=== PATIENT | male | born 1960 | race Caucasian/White ===

== ENCOUNTER 2017-01-27 21:34 | Inpatient (IN) | payer OTHER ==
[~2017-01-27] VITALS: Ht 193 cm; Wt 147.0 kg
[~2017-01-27 21:34] MED LIST: ALL DAY ALLERGY10 M3 PO; ARTIFICIAL TEAR15 ML OU; BENADRYL 25MG C25 MG PO; CARDIZEM120 MG PO; COLACE 100MG C100 MG PO; DISALCID750 MG PO; FENOFIBRATE160 MG PO; FISH OIL 1,0001 EACH PO; GLUCOPHAGE850 MG PO; LISINOPRIL5 MG PO; LOPRESSOR50 MG PO; LORTAB 5-325 M1 EACH PO; LORTAB 7.5-3251 EACH PO; NASONEX SPRAY 117 GM; NEURONTIN 300300 MG PO; PRILOSEC OTC20 MG PO; TIZANIDINE HCL4 MG PO; TOPAMAX50 MG PO; TRIAMTERENE-HC1 EAC3 PO; TYLENOL 325MG325 MG PO; VITAMIN D2000 UNIT PO; WARFARIN SODIUM3 MG PO; WARFARIN SODIUM4 MG PO; ZETIA10 MG PO
[2017-01-28 00:23] LABS: RED BLOOD COUNT 5.04 M/UL (4.20-5.50)
[2017-01-28 00:37] LABS: BUN/CREATININE RATIO 19 (0-10)
[2017-01-28 01:02] LABS: HEMOGLOBIN 14.7 gm/dl (14.0-17.5)
[2017-01-29 05:25] LABS: RED BLOOD COUNT 4.56 M/UL (4.20-5.50); WHITE BLOOD COUNT 8.4 K/UL (4.5-11.0)
[2017-01-29 05:52] LABS: BUN/CREATININE RATIO 21 (0-10)
[2017-01-30 05:40] LABS: HEMOGLOBIN 13.1 gm/dl (14.0-17.5); RED BLOOD COUNT 4.63 M/UL (4.20-5.50)
[2017-01-30 06:01] LABS: BUN/CREATININE RATIO 19 (0-10)
[2017-01-30] MEDS ORDERED: BACTRIM DS TAB1 EACH PO (15:30)
== END 2017-01-30 16:20 | disposition home or self-care (01) | DRG 857 ==
LOC: ER1 21:34 → ZEROF 01-28 → M/S 01-28
PROVIDERS: Emergency Medicine; ADMIT Family Medicine
PROC: 0JB80ZZ Excision of Abdomen Subcutaneous Tissue and Fascia, Open Approach (ICD-10-PCS; principal; 2017-01-29)
DX: T81.4XXA Infection following a procedure, initial encounter (principal); K65.4 Sclerosing mesenteritis; G47.33 Obstructive sleep apnea (adult) (pediatric); E11.9 Type 2 diabetes mellitus without complications; I10 Essential (primary) hypertension; E78.5 Hyperlipidemia, unspecified; M19.90 Unspecified osteoarthritis, unspecified site; K21.9 Gastro-esophageal reflux disease without esophagitis; J30.9 Allergic rhinitis, unspecified; I48.2 Chronic atrial fibrillation; G89.29 Other chronic pain; M54.9 Dorsalgia, unspecified; E66.9 Obesity, unspecified; Z90.49 Acquired absence of other specified parts of digestive tract; Z96.643 Presence of artificial hip joint, bilateral; Z82.49 Family history of ischemic heart disease and other diseases of the circulatory system; Z88.0 Allergy status to penicillin; Z91.030 Bee allergy status; Z79.01 Long term (current) use of anticoagulants; Z79.84 Long term (current) use of oral hypoglycemic drugs; Z79.899 Other long term (current) drug therapy; B96.89 Other specified bacterial agents as the cause of diseases classified elsewhere; Z68.39 Body mass index [BMI] 39.0-39.9, adult
CPT/HCPCS: 36415; 80048; 80053; 80202; 82247; 82962; 85025; 85027; 85610; 85730; 86140; 87040; 87070; 87205; 96374; 99285; J1335; J2270; J3370; J7030; J7040; J7050

== ENCOUNTER → 2020-11-17 | Outpatient (CLI) | payer OTHER ==
[~2020-11-17] MED LIST changes: +BACTRIM DS TAB1 EACH PO; +OMNICEF 300 MG300 MG PO; +ZOFRAN ODT 4 MG4 MG PO
== END ==
LOC: KOH-I 16:00
DX: R10.9 Unspecified abdominal pain (principal); R31.9 Hematuria, unspecified; R19.07 Generalized intra-abdominal and pelvic swelling, mass and lump; M47.816 Spondylosis without myelopathy or radiculopathy, lumbar region; Z96.643 Presence of artificial hip joint, bilateral
CPT/HCPCS: 74176